=== PATIENT | female | born 1980 | race Caucasian/White ===

== ENCOUNTER → 2020-03-17 | Outpatient (CLI) | payer BC, OTHER ==
[2020-03-17 13:14] LABS: HEMOGLOBIN 13.9 gm/dl (12.3-15.3); RED BLOOD COUNT 4.53 M/UL (4.00-5.10); WHITE BLOOD COUNT 5.7 K/UL (4.5-11.0)
[2020-03-17 13:30] LABS: BUN/CREATININE RATIO 15 (0-10)
[2020-03-18 09:12] LABS: THYROXINE (T4) 8.2 ug/dL (4.5-12.0)
[2020-03-18 10:12] LABS: VITAMIN D, 25-HYDROXY 33.7 ng/mL (30.0-100.0)
== END ==
LOC: LAB 12:34
PROVIDERS: Nurse Practitioner Family
DX: E53.8 Deficiency of other specified B group vitamins (principal); E55.9 Vitamin D deficiency, unspecified; R42 Dizziness and giddiness; R03.0 Elevated blood-pressure reading, without diagnosis of hypertension; R53.83 Other fatigue
CPT/HCPCS: 36415; 80053; 80061; 82607; 82746; 84436; 84443; 85025

== ENCOUNTER → 2020-03-30 | Outpatient (CLI) | payer BC, OTHER | LOC: CT 03-22 08:00 | DX: H81.4 Vertigo of central origin (principal); R41.0 Disorientation, unspecified | CPT/HCPCS: 70470; Q9963 ==